=== PATIENT | male | born 1960 | race African-American/Black ===

== ENCOUNTER 2017-10-02 15:18 | Emergency (ER) | payer MEDICAID ==
[~2017-10-02] VITALS: Ht 190.5 cm; Wt 102.0 kg
[~2017-10-02 15:18] MED LIST: AMLO5TAB4 PO; ASPIRIN PO; ATOR10TA PO; CARVEDILOL PO; CLONIDINE PO; HCTZ PO; IBUP-2029 PO; LISI10TA5 PO
[2017-10-02] MEDS ORDERED: KETOROLAC 60MG/2ML VIAL IM ONE (18:45)
[2017-10-02] MEDS ORDERED: TETANUS, DIPHTHERIA, PERTUSSIS VAC/PF 0.5ML (>7YR OLD) IM ONE (18:45)
[2017-10-02 20:15] VITALS: BP 112/74
[2017-10-02 20:27] LABS: BASOPHILS % 1.7 % (0.0-2.0); EOSINOPHILS % 4.3 % (0.0-5.0); HEMATOCRIT. 40.1 % (42.0-52.0); HEMOGLOBIN. 13.2 g/dL (14.0-18.0); LYMPHOCYTES % 39.4 % (20.0-50.0); MEAN CORPUSCULAR HEMOGLOBIN 26.8 pg (28.0-32.0); MEAN CORPUSCULAR VOLUME 81.6 fL (80.0-94.0); MEAN PLATELET VOLUME 7.8 fl (7.4-10.4); NEUTROPHILS % 44.6 % (40.0-76.0); PLATELET 310 x1000/uL (130-400); RED BLOOD CELL COUNT 4.92 mill/uL (4.7-6.1); RED CELL DISTRIBUTION WIDTH 18.1 % (11.6-14.6)
[2017-10-02 20:31] LABS: CHLORIDE 109 mEq/L (98-107)
[2017-10-02 20:40] LABS: CARBON DIOXIDE 28 mEq/L (21-32)
== END 2017-10-02 21:23 | disposition home or self-care (01) ==
LOC: ER 15:40
DX: L03.811 Cellulitis of head [any part, except face] (principal); S00.06XA Insect bite (nonvenomous) of scalp, initial encounter; T63.301A Toxic effect of unspecified spider venom, accidental (unintentional), initial encounter; Y93.9 Activity, unspecified; Y92.9 Unspecified place or not applicable; E78.00 Pure hypercholesterolemia, unspecified; N28.9 Disorder of kidney and ureter, unspecified; I10 Essential (primary) hypertension; F17.200 Nicotine dependence, unspecified, uncomplicated; M10.9 Gout, unspecified; Z23 Encounter for immunization; Z86.73 Personal history of transient ischemic attack (TIA), and cerebral infarction without residual deficits; Z79.82 Long term (current) use of aspirin; Z86.61 Personal history of infections of the central nervous system
CPT/HCPCS: 36415; 80053; 85025; 90471; 90715; 96372; 99284; J1885

== ENCOUNTER 2018-12-27 11:18 | Inpatient (IN) | payer MEDICAID ==
[~2018-12-27] VITALS: Ht 190.5 cm; Wt 97.7 kg
[2018-12-27 13:53] LABS: BASOPHILS % 0.6 % (0.0-2.0); EOSINOPHILS % 1.2 % (0.0-5.0); HEMATOCRIT. 40.9 % (42.0-52.0); HEMOGLOBIN. 13.3 g/dL (14.0-18.0); LYMPHOCYTES % 19.8 % (20.0-50.0); MEAN CORPUSCULAR HEMOGLOBIN 27.1 pg (28.0-32.0); MEAN CORPUSCULAR VOLUME 83.6 fL (80.0-94.0); MEAN PLATELET VOLUME 8.7 fl (7.4-10.4); MONOCYTES % 12.8 % (2.0-8.0); NEUTROPHILS % 65.6 % (40.0-76.0); PLATELET 254 x1000/uL (130-400); RED BLOOD CELL COUNT 4.89 mill/uL (4.7-6.1); RED CELL DISTRIBUTION WIDTH 17.6 % (11.6-14.6)
[2018-12-27 13:56] LABS: CHLORIDE 108 mEq/L (98-107)
[2018-12-27 13:59] LABS: PROTHROMBIN TIME 10.3 sec (9.1-11.1)
[2018-12-27 14:36] LABS: CLARITY URINE CLEAR (CLEAR); COLOR URINE YELLOW (YELLOW); KETONES URINE NEGATIVE (NEGATIVE); LEUKOCYTE ESTERASE URINE NEGATIVE (NEGATIVE); NITRITE URINE NEGATIVE (NEGATIVE); OCCULT BLOOD URINE NEGATIVE (NEGATIVE); PH URINE 5.5 (4.5-8.0); PROTEIN URINE NEGATIVE (NEGATIVE); UROBILINOGEN URINE 0.2 E.U./dL (0.2-1.0)
[2018-12-27] MEDS: AMPICILLIN SOD/SULBACTAM NA 3 G in SODIUM CHLORIDE 0.9% 100 ML IV SCH ×2 (15:43→15:59)
[2018-12-27] MEDS: MORPHINE SULFATE 4 MG/ML CPJ (NOT FOR IM USE) IV PRN (20:50)
[2018-12-27] MEDS: CLONIDINE 0.1MG TABLET PO PRN (20:50)
[2018-12-27 21:30] VITALS: BP 160/83
[2018-12-27 22:30] VITALS: BP 160/83
[2018-12-28] VITALS: BP 157/89
[2018-12-28] MEDS: MORPHINE SULFATE 4 MG/ML CPJ (NOT FOR IM USE) IV PRN (03:45)
[2018-12-28] MEDS: AMPICILLIN SOD/SULBACTAM NA 3 G in SODIUM CHLORIDE 0.9% 100 ML IV SCH (03:59)
[2018-12-28 04:00] VITALS: BP 159/84
[2018-12-28] MEDS ORDERED: DEXTROSE 50% WATER 50ML SYRINGE IV PRN (08:30)
[2018-12-28] MEDS ORDERED: ONDANSETRON HCL 4MG/2ML INJ IV PRN (08:30)
[2018-12-28] MEDS ORDERED: ACETAMINOPHEN 325MG TABLET PO PRN (08:30)
[2018-12-28 08:47] VITALS: BP 183/89
[2018-12-28] MEDS: AMLODIPINE 5MG TABLET PO SCH ×2 (09:44→21:11)
[2018-12-28] MEDS: ENOXAPARIN 40MG/0.4ML SYR SUBCUT SCH (09:45)
[2018-12-28] MEDS: HYDROCODONE/ACETAMINOPHEN 5/325MG TABLET PO PRN ×3 (09:45→21:17)
[2018-12-28 12:00] VITALS: BP 146/90
[2018-12-28] MEDS ORDERED: AMPICILLIN SOD/SULBACTAM NA 3 G in SODIUM CHLORIDE 0.9% 100 ML IV SCH (12:00)
[2018-12-28] MEDS: BLOOD SUGAR DIAGNOSTIC STRIP TEST SCH ×3 (12:10→21:00)
[2018-12-28] MEDS: INSULIN LISPRO 100 UNITS/ML SUBCUT SCH ×3 (12:40→21:00)
[2018-12-28] MEDS: LOSARTAN POTASSIUM 50 MG TABLET PO SCH (14:36)
[2018-12-28] MEDS: CLONIDINE 0.1MG TABLET PO PRN (17:30)
[2018-12-28 18:06] VITALS: BP 161/99
[2018-12-28 18:34] LABS: *AMPHETAMINES SCREEN URINE NEGATIVE (NEGATIVE); *BARBITURATES SCREEN URINE NEGATIVE (NEGATIVE); *BENZODIAZEPINES SCREEN URINE NEGATIVE (NEGATIVE); *COCAINE SCREEN URINE PRESUMTIVE POSITIVE (NEGATIVE); METHADONE URINE SCREEN NEGATIVE (NEGATIVE); OPIATES URINE SCREEN PRESUMTIVE POSITIVE (NEGATIVE); PHENCYCLIDINE URINE SCREEN PRESUMTIVE POSITIVE (NEGATIVE)
[2018-12-28 18:35] LABS: CANNABINOID URINE SCREEN NEGATIVE (NEGATIVE)
[2018-12-28 20:00] VITALS: BP 168/104
[2018-12-29] VITALS (7 sets, daily range): BP systolic 133–175; BP diastolic 62–98
[2018-12-29] MEDS: BLOOD SUGAR DIAGNOSTIC STRIP TEST SCH ×4 (05:07→21:00)
[2018-12-29] MEDS: CLONIDINE 0.1MG TABLET PO PRN (05:20)
[2018-12-29] MEDS: HYDROCODONE/ACETAMINOPHEN 5/325MG TABLET PO PRN ×3 (05:24→21:22)
[2018-12-29] MEDS: INSULIN LISPRO 100 UNITS/ML SUBCUT SCH ×4 (05:24→21:00)
[2018-12-29 07:05] LABS: CHLORIDE 104 mEq/L (98-107)
[2018-12-29 07:20] LABS: HEMATOCRIT. 38.5 % (42.0-52.0); HEMOGLOBIN. 12.4 g/dL (14.0-18.0); MEAN CORPUSCULAR HEMOGLOBIN 26.8 pg (28.0-32.0); MEAN CORPUSCULAR VOLUME 83.5 fL (80.0-94.0); MEAN PLATELET VOLUME 8.7 fl (7.4-10.4); PLATELET 254 x1000/uL (130-400); RED BLOOD CELL COUNT 4.62 mill/uL (4.7-6.1); RED CELL DISTRIBUTION WIDTH 17.1 % (11.6-14.6)
[2018-12-29] MEDS: LOSARTAN POTASSIUM 50 MG TABLET PO SCH (08:54)
[2018-12-29] MEDS: AMLODIPINE 5MG TABLET PO SCH ×2 (08:54→21:16)
[2018-12-29] MEDS: ENOXAPARIN 40MG/0.4ML SYR SUBCUT SCH (08:55)
[2018-12-29 21:19] LABS: PLATELET ESTIMATE NORMAL
[2018-12-30] VITALS: BP 138/72
[2018-12-30 04:00] VITALS: BP 170/86
[2018-12-30] MEDS: BLOOD SUGAR DIAGNOSTIC STRIP TEST SCH ×4 (04:54→20:38)
[2018-12-30] MEDS: CLONIDINE 0.1MG TABLET PO PRN (05:40)
[2018-12-30] MEDS: HYDROCODONE/ACETAMINOPHEN 5/325MG TABLET PO PRN ×3 (05:41→20:15)
[2018-12-30] MEDS: INSULIN LISPRO 100 UNITS/ML SUBCUT SCH ×4 (05:44→21:00)
[2018-12-30 08:00] VITALS: BP 132/69
[2018-12-30 08:02] LABS: HEMATOCRIT. 39.2 % (42.0-52.0); HEMOGLOBIN. 12.6 g/dL (14.0-18.0); MEAN CORPUSCULAR HEMOGLOBIN 26.9 pg (28.0-32.0); MEAN CORPUSCULAR VOLUME 83.5 fL (80.0-94.0); MEAN PLATELET VOLUME 8.6 fl (7.4-10.4); PLATELET 268 x1000/uL (130-400); RED BLOOD CELL COUNT 4.69 mill/uL (4.7-6.1); RED CELL DISTRIBUTION WIDTH 17.3 % (11.6-14.6)
[2018-12-30 08:31] LABS: CHLORIDE 104 mEq/L (98-107)
[2018-12-30] MEDS: LOSARTAN POTASSIUM 50 MG TABLET PO SCH (08:49)
[2018-12-30] MEDS: AMLODIPINE 5MG TABLET PO SCH ×2 (08:49→20:16)
[2018-12-30] MEDS: ENOXAPARIN 40MG/0.4ML SYR SUBCUT SCH (08:49)
[2018-12-30 12:00] VITALS: BP 150/86
[2018-12-30 14:55] LABS: PLATELET ESTIMATE NORMAL
[2018-12-30 16:00] VITALS: BP 155/74
[2018-12-30 20:00] VITALS: BP 160/100
[2018-12-31] VITALS: BP 134/74
[2018-12-31] MEDS: HYDROCODONE/ACETAMINOPHEN 5/325MG TABLET PO PRN ×4 (02:53→18:42)
[2018-12-31 04:00] VITALS: BP 148/79
[2018-12-31] MEDS: BLOOD SUGAR DIAGNOSTIC STRIP TEST SCH ×4 (06:23→20:46)
[2018-12-31] MEDS: INSULIN LISPRO 100 UNITS/ML SUBCUT SCH ×4 (06:34→20:49)
[2018-12-31 08:00] VITALS: BP_SYST 144; BP_SYST 198; BP_DIAS 51; BP_DIAS 75
[2018-12-31] MEDS: AMLODIPINE 5MG TABLET PO SCH ×2 (09:15→20:49)
[2018-12-31] MEDS: LOSARTAN POTASSIUM 50 MG TABLET PO SCH (09:16)
[2018-12-31] MEDS: ENOXAPARIN 40MG/0.4ML SYR SUBCUT SCH (09:17)
[2018-12-31 09:22] VITALS: BP 154/46
[2018-12-31 09:38] LABS: BASOPHILS % 1.1 % (0.0-2.0); EOSINOPHILS % 2.1 % (0.0-5.0); HEMATOCRIT. 40.7 % (42.0-52.0); HEMOGLOBIN. 13.2 g/dL (14.0-18.0); MEAN CORPUSCULAR HEMOGLOBIN 26.9 pg (28.0-32.0); MEAN CORPUSCULAR VOLUME 83.1 fL (80.0-94.0); MEAN PLATELET VOLUME 8.3 fl (7.4-10.4); MONOCYTES % 10.9 % (2.0-8.0); NEUTROPHILS % 61.9 % (40.0-76.0); PLATELET 307 x1000/uL (130-400); RED CELL DISTRIBUTION WIDTH 17.4 % (11.6-14.6)
[2018-12-31 09:51] LABS: CHLORIDE 102 mEq/L (98-107)
[2018-12-31 12:00] VITALS: BP 148/81
[2018-12-31 20:00] VITALS: BP 142/80
[2018-12-31] MEDS: ENOXAPARIN 30MG/0.3ML SYR SUBCUT SCH (20:47)
[2018-12-31] MEDS ORDERED: SORBITOL 70% SOLN 30ML PO SCH (22:45)
[2019-01-01] VITALS: BP 132/75
[2019-01-01 04:00] VITALS: BP 129/80
[2019-01-01] MEDS: HYDROCODONE/ACETAMINOPHEN 5/325MG TABLET PO PRN ×4 (05:19→22:45)
[2019-01-01] MEDS: BLOOD SUGAR DIAGNOSTIC STRIP TEST SCH ×4 (05:56→19:54)
[2019-01-01] MEDS: INSULIN LISPRO 100 UNITS/ML SUBCUT SCH ×4 (05:59→20:33)
[2019-01-01 07:01] LABS: BASOPHILS % 0.7 % (0.0-2.0); EOSINOPHILS % 1.5 % (0.0-5.0); HEMATOCRIT. 37.8 % (42.0-52.0); HEMOGLOBIN. 12.4 g/dL (14.0-18.0); MEAN CORPUSCULAR HEMOGLOBIN 27.1 pg (28.0-32.0); MEAN CORPUSCULAR VOLUME 82.5 fL (80.0-94.0); MEAN PLATELET VOLUME 8.4 fl (7.4-10.4); MONOCYTES % 13.1 % (2.0-8.0); NEUTROPHILS % 67.7 % (40.0-76.0); PLATELET 314 x1000/uL (130-400); RED BLOOD CELL COUNT 4.58 mill/uL (4.7-6.1)
[2019-01-01 07:26] LABS: CHLORIDE 103 mEq/L (98-107)
[2019-01-01 08:00] VITALS: BP 153/92
[2019-01-01] MEDS: AMLODIPINE 5MG TABLET PO SCH ×2 (09:16→21:02)
[2019-01-01] MEDS: LOSARTAN POTASSIUM 50 MG TABLET PO SCH (09:16)
[2019-01-01] MEDS: ENOXAPARIN 30MG/0.3ML SYR SUBCUT SCH ×2 (09:17→21:01)
[2019-01-01 16:00] VITALS: BP 104/74
[2019-01-01 19:59] VITALS: BP 143/84
[2019-01-02] VITALS: BP 145/72
[2019-01-02 04:00] VITALS: BP 145/84
[2019-01-02] MEDS: BLOOD SUGAR DIAGNOSTIC STRIP TEST SCH ×3 (05:27→17:10)
[2019-01-02] MEDS: HYDROCODONE/ACETAMINOPHEN 5/325MG TABLET PO PRN (05:27)
[2019-01-02] MEDS: INSULIN LISPRO 100 UNITS/ML SUBCUT SCH ×3 (06:22→17:40)
[2019-01-02 08:00] VITALS: BP 150/82
[2019-01-02] MEDS: AMLODIPINE 5MG TABLET PO SCH (09:00)
[2019-01-02] MEDS: ENOXAPARIN 30MG/0.3ML SYR SUBCUT SCH (09:07)
[2019-01-02] MEDS: LOSARTAN POTASSIUM 50 MG TABLET PO SCH (09:08)
[2019-01-02 12:00] VITALS: BP 131/79
[2019-01-02] MEDS ORDERED: HYDROCODONE/ACETAMINOPHEN 5/325MG TABLET PO PRN (13:45)
[2019-01-02] MEDS ORDERED: HYDROCODONE/ACETAMINOPHEN 10/325MG TABLET PO PRN (13:45)
[2019-01-02 16:00] VITALS: BP 148/81
[2019-01-02 19:58] VITALS: BP 150/87
== END 2019-01-02 20:30 | DRG 380 ==
LOC: ER 12:28 → 8WST 15:33 → EDBEDREQ 15:35 → ENRESERV 20:19
PROVIDERS: ADMIT Internal Medicine; ATTEND Internal Medicine
DX: E11.621 Type 2 diabetes mellitus with foot ulcer (principal); L97.519 Non-pressure chronic ulcer of other part of right foot with unspecified severity; E87.8 Other disorders of electrolyte and fluid balance, not elsewhere classified; E44.1 Mild protein-calorie malnutrition; B35.3 Tinea pedis; F14.10 Cocaine abuse, uncomplicated; E78.5 Hyperlipidemia, unspecified; F17.200 Nicotine dependence, unspecified, uncomplicated; G83.11 Monoplegia of lower limb affecting right dominant side; I10 Essential (primary) hypertension; E78.00 Pure hypercholesterolemia, unspecified; L60.3 Nail dystrophy; M20.10 Hallux valgus (acquired), unspecified foot; M47.9 Spondylosis, unspecified; M48.00 Spinal stenosis, site unspecified; Z86.73 Personal history of transient ischemic attack (TIA), and cerebral infarction without residual deficits; Z96.659 Presence of unspecified artificial knee joint; M19.90 Unspecified osteoarthritis, unspecified site; Z71.6 Tobacco abuse counseling; Z68.26 Body mass index [BMI] 26.0-26.9, adult
CPT/HCPCS: 36415; 73080; 73110; 73630; 80048; 80305; 82962; 83036; 83605; 85651; 86140; 93005; 93971; 97116; 97162; 97165; 97530; 97535; 99285; G0378; J0295; J1650; J1815; J2270; J7040; J7050

== ENCOUNTER 2019-05-05 08:38 | Inpatient (IN) | payer MEDICAID ==
[~2019-05-05] VITALS: Ht 190.5 cm; Wt 97.5 kg
[2019-05-05] MEDS ORDERED: PIPERACILLIN/TAZ 3.375G PREMIX 50 ML IV ONE (09:30)
[2019-05-05] MEDS ORDERED: VANCOMYCIN 1 G PREMIX 200 ML IV SCH (09:30)
[2019-05-05 11:04] LABS: BASOPHILS % 0.8 % (0.0-2.0); EOSINOPHILS % 2.2 % (0.0-5.0); HEMATOCRIT. 37.9 % (42.0-52.0); HEMOGLOBIN. 12.1 g/dL (14.0-18.0); MEAN CORPUSCULAR HEMOGLOBIN 26.8 pg (28.0-32.0); MEAN CORPUSCULAR VOLUME 84.1 fL (80.0-94.0); MONOCYTES % 9.7 % (2.0-8.0); NEUTROPHILS % 64.3 % (40.0-76.0); PLATELET 272 x1000/uL (130-400); RED BLOOD CELL COUNT 4.51 mill/uL (4.7-6.1); RED CELL DISTRIBUTION WIDTH 17.5 % (11.6-14.6)
[2019-05-05 11:09] LABS: CHLORIDE 113 mEq/L (98-107)
[2019-05-05 13:43] VITALS: BP 151/71
[2019-05-05] MEDS ORDERED: ACETAMINOPHEN 325MG TABLET PO PRN (13:45)
[2019-05-05] MEDS ORDERED: ONDANSETRON HCL 4MG/2ML INJ IV PRN (13:45)
[2019-05-05] MEDS ORDERED: ASPI-1158 PO (13:52)
[2019-05-05] MEDS ORDERED: IBUP-2029 PO (13:52)
[2019-05-05] MEDS ORDERED: CHLO25TA2 PO (13:52)
[2019-05-05] MEDS ORDERED: LISI40TA4 PO (13:52)
[2019-05-05] MEDS ORDERED: SERT25TA74 MT (13:52)
[2019-05-05] MEDS ORDERED: CARV12.545 PO (13:52)
[2019-05-05] MEDS ORDERED: NIFE90TA34 PO (13:52)
[2019-05-05] MEDS: ENOXAPARIN 40MG/0.4ML SYR SUBCUT SCH (15:06)
[2019-05-05 15:47] LABS: CLARITY URINE CLEAR (CLEAR); COLOR URINE YELLOW (YELLOW); KETONES URINE NEGATIVE (NEGATIVE); LEUKOCYTE ESTERASE URINE NEGATIVE (NEGATIVE); NITRITE URINE NEGATIVE (NEGATIVE); OCCULT BLOOD URINE NEGATIVE (NEGATIVE); PH URINE 5.5 (4.5-8.0); PROTEIN URINE NEGATIVE (NEGATIVE); SPECIFIC GRAVITY URINE 1.019 (1.005-1.030); UROBILINOGEN URINE 0.2 E.U./dL (0.2-1.0)
[2019-05-05 16:00] VITALS: BP 163/101
[2019-05-05 16:15] LABS: *AMPHETAMINES SCREEN URINE NEGATIVE (NEGATIVE); *BARBITURATES SCREEN URINE NEGATIVE (NEGATIVE); *BENZODIAZEPINES SCREEN URINE NEGATIVE (NEGATIVE)
[2019-05-05 16:16] LABS: *COCAINE SCREEN URINE PRESUMTIVE POSITIVE (NEGATIVE); CANNABINOID URINE SCREEN NEGATIVE (NEGATIVE); METHADONE URINE SCREEN NEGATIVE (NEGATIVE); OPIATES URINE SCREEN NEGATIVE (NEGATIVE); PHENCYCLIDINE URINE SCREEN PRESUMTIVE POSITIVE (NEGATIVE)
[2019-05-05] MEDS: METFORMIN HCL 500MG TABLET PO SCH (16:55)
[2019-05-05] MEDS: CLONIDINE 0.1MG TABLET PO PRN (16:56)
[2019-05-05] MEDS: LOSARTAN POTASSIUM 50 MG TABLET PO SCH (18:45)
[2019-05-05 20:00] VITALS: BP 165/89
[2019-05-05] MEDS: AMLODIPINE 5MG TABLET PO SCH (20:06)
[2019-05-05] MEDS ORDERED: VANCOMYCIN 1250MG in DEXTROSE 5% WATER 250ML IV SCH (21:00)
[2019-05-05] MEDS: PIPERACILLIN/TAZ 3.375G PREMIX 50 ML IV SCH (21:11)
[2019-05-06] VITALS: BP 139/61
[2019-05-06] MEDS: PIPERACILLIN/TAZ 3.375G PREMIX 50 ML IV SCH ×4 (01:23→20:08)
[2019-05-06 04:00] VITALS: BP 144/71
[2019-05-06 08:00] VITALS: BP 163/92
[2019-05-06] MEDS: ENOXAPARIN 40MG/0.4ML SYR SUBCUT SCH (08:13)
[2019-05-06] MEDS: METFORMIN HCL 500MG TABLET PO SCH ×2 (08:14→16:55)
[2019-05-06] MEDS: AMLODIPINE 5MG TABLET PO SCH ×2 (08:14→20:08)
[2019-05-06] MEDS: LOSARTAN POTASSIUM 50 MG TABLET PO SCH (08:14)
[2019-05-06 08:28] LABS: BASOPHILS % 0.8 % (0.0-2.0); EOSINOPHILS % 3.7 % (0.0-5.0); HEMATOCRIT. 37.5 % (42.0-52.0); HEMOGLOBIN. 12.2 g/dL (14.0-18.0); LYMPHOCYTES % 31.8 % (20.0-50.0); MEAN CORPUSCULAR HEMOGLOBIN 26.8 pg (28.0-32.0); MEAN CORPUSCULAR VOLUME 82.8 fL (80.0-94.0); MEAN PLATELET VOLUME 8.4 fl (7.4-10.4); MONOCYTES % 12.8 % (2.0-8.0); NEUTROPHILS % 50.9 % (40.0-76.0); PLATELET 279 x1000/uL (130-400); RED BLOOD CELL COUNT 4.53 mill/uL (4.7-6.1); RED CELL DISTRIBUTION WIDTH 17.4 % (11.6-14.6)
[2019-05-06 08:50] LABS: CHLORIDE 108 mEq/L (98-107)
[2019-05-06] MEDS: VANCOMYCIN 1 G PREMIX 200 ML IV SCH ×2 (09:01→21:40)
[2019-05-06 12:00] VITALS: BP 147/85
[2019-05-06 16:00] VITALS: BP 174/79
[2019-05-06] MEDS: HYDROCODONE/ACETAMINOPHEN 5/325MG TABLET PO PRN (16:56)
[2019-05-06 20:00] VITALS: BP 160/88
[2019-05-06] MEDS: ENOXAPARIN 30MG/0.3ML SYR SUBCUT SCH (20:08)
[2019-05-07] VITALS: BP 161/90
[2019-05-07] MEDS: PIPERACILLIN/TAZ 3.375G PREMIX 50 ML IV SCH ×4 (01:35→20:14)
[2019-05-07 04:00] VITALS: BP 163/83
[2019-05-07] MEDS: HYDROCODONE/ACETAMINOPHEN 5/325MG TABLET PO PRN ×2 (06:32→13:58)
[2019-05-07 08:00] VITALS: BP 145/82
[2019-05-07] MEDS: LOSARTAN POTASSIUM 50 MG TABLET PO SCH (08:46)
[2019-05-07] MEDS: METFORMIN HCL 500MG TABLET PO SCH ×2 (08:46→17:58)
[2019-05-07] MEDS: ENOXAPARIN 30MG/0.3ML SYR SUBCUT SCH (08:47)
[2019-05-07] MEDS: AMLODIPINE 5MG TABLET PO SCH ×2 (08:47→20:14)
[2019-05-07] MEDS: VANCOMYCIN 1 G PREMIX 200 ML IV SCH ×2 (09:52→21:23)
[2019-05-07 12:00] VITALS: BP 153/87
[2019-05-07 16:00] VITALS: BP 137/74
[2019-05-07 20:00] VITALS: BP 158/85
[2019-05-08] VITALS: BP 157/82
[2019-05-08] MEDS: HYDROCODONE/ACETAMINOPHEN 5/325MG TABLET PO PRN ×3 (00:11→22:49)
[2019-05-08] MEDS: PIPERACILLIN/TAZ 3.375G PREMIX 50 ML IV SCH ×4 (02:20→19:43)
[2019-05-08 04:00] VITALS: BP 154/72
[2019-05-08 08:00] VITALS: BP 162/97
[2019-05-08] MEDS: ENOXAPARIN 40MG/0.4ML SYR SUBCUT SCH (08:27)
[2019-05-08] MEDS: LOSARTAN POTASSIUM 50 MG TABLET PO SCH ×2 (08:28→22:40)
[2019-05-08] MEDS: AMLODIPINE 5MG TABLET PO SCH ×2 (08:28→22:40)
[2019-05-08] MEDS: METFORMIN HCL 500MG TABLET PO SCH ×2 (08:28→17:35)
[2019-05-08] MEDS: VANCOMYCIN 1 G PREMIX 200 ML IV SCH ×2 (09:33→22:39)
[2019-05-08] MEDS: CLONIDINE 0.1MG TABLET PO PRN (10:09)
[2019-05-08] MEDS: HYDRALAZINE HCL 50MG TABLET PO SCH ×2 (11:09→22:39)
[2019-05-08 12:00] VITALS: BP 147/92
[2019-05-08 16:00] VITALS: BP 138/76
[2019-05-08] MEDS: SILVER SULFADIAZINE 1% CREAM 25GM TOP SCH (17:35)
[2019-05-08 20:00] VITALS: BP 156/100
[2019-05-09] VITALS: BP 156/100
[2019-05-09] MEDS: PIPERACILLIN/TAZ 3.375G PREMIX 50 ML IV SCH ×3 (02:19→14:09)
[2019-05-09 04:00] VITALS: BP 127/73
[2019-05-09 08:00] VITALS: BP 150/91
[2019-05-09] MEDS: METFORMIN HCL 500MG TABLET PO SCH (08:22)
[2019-05-09] MEDS: HYDRALAZINE HCL 50MG TABLET PO SCH (08:22)
[2019-05-09] MEDS: AMLODIPINE 5MG TABLET PO SCH (08:22)
[2019-05-09] MEDS: ENOXAPARIN 40MG/0.4ML SYR SUBCUT SCH (08:23)
[2019-05-09] MEDS: LOSARTAN POTASSIUM 50 MG TABLET PO SCH (08:23)
[2019-05-09] MEDS: HYDROCODONE/ACETAMINOPHEN 5/325MG TABLET PO PRN (08:29)
[2019-05-09] MEDS: SILVER SULFADIAZINE 1% CREAM 25GM TOP SCH (08:36)
[2019-05-09] MEDS: VANCOMYCIN 1 G PREMIX 200 ML IV SCH (08:37)
[2019-05-09 12:00] VITALS: BP 127/80
[2019-05-09 13:26] VITALS: BP 127/80
[2019-05-09 16:00] VITALS: BP 163/98
[2019-05-10 04:14] LABS: HIV SCREEN 4G Non Reactive (Non Reactive)
== END 2019-05-09 15:47 | disposition home or self-care (01) | DRG 380 ==
LOC: ER 09:00 → 6EST 11:15 → EDBEDREQ 11:17 → ENRESERV 12:34
PROVIDERS: ADMIT Internal Medicine; ATTEND Internal Medicine
PROC: 0JBQ0ZZ Excision of Right Foot Subcutaneous Tissue and Fascia, Open Approach (ICD-10-PCS; principal; 2019-05-07)
DX: E11.621 Type 2 diabetes mellitus with foot ulcer (principal); L97.529 Non-pressure chronic ulcer of other part of left foot with unspecified severity; L97.519 Non-pressure chronic ulcer of other part of right foot with unspecified severity; E11.40 Type 2 diabetes mellitus with diabetic neuropathy, unspecified; E87.8 Other disorders of electrolyte and fluid balance, not elsewhere classified; E44.1 Mild protein-calorie malnutrition; F14.10 Cocaine abuse, uncomplicated; I10 Essential (primary) hypertension; D64.9 Anemia, unspecified; E78.5 Hyperlipidemia, unspecified; I25.10 Atherosclerotic heart disease of native coronary artery without angina pectoris; Z86.73 Personal history of transient ischemic attack (TIA), and cerebral infarction without residual deficits; F16.10 Hallucinogen abuse, uncomplicated; Z96.659 Presence of unspecified artificial knee joint; F17.210 Nicotine dependence, cigarettes, uncomplicated; L60.3 Nail dystrophy; M20.10 Hallux valgus (acquired), unspecified foot; M20.42 Other hammer toe(s) (acquired), left foot; M20.41 Other hammer toe(s) (acquired), right foot; Z79.82 Long term (current) use of aspirin; I25.2 Old myocardial infarction; Z71.51 Drug abuse counseling and surveillance of drug abuser; Z68.26 Body mass index [BMI] 26.0-26.9, adult
CPT/HCPCS: 36415; 73630; 80048; 80202; 80305; 83036; 83605; 87389; 97116; 97162; 99285; C1893; J1650; J2543; J3370; J7040; J7060

== ENCOUNTER 2020-02-09 02:32 | Inpatient (IN) | payer MEDICAID ==
[~2020-02-09] VITALS: Ht 190.5 cm; Wt 93.0 kg
[~2020-02-09 02:32] MED LIST changes: +ASPI-1158 PO; -ASPIRIN PO; +CARV12.545 PO; -CARVEDILOL PO; +CHLO25TA2 PO; +LISI40TA4 PO; +NIFE90TA60 PO; +SERT25TA74 MT
[2020-02-09] MEDS ORDERED: MORPHINE SULFATE 4 MG/ML CPJ (NOT FOR IM USE) IV ONE (03:00)
[2020-02-09] MEDS ORDERED: CLONIDINE 0.2MG TABLET PO ONE (03:00)
[2020-02-09] MEDS ORDERED: ONDANSETRON HCL 4MG/2ML INJ IV ONE (03:00)
[2020-02-09 04:10] LABS: BASOPHILS % 0.9 % (0.0-2.0); EOSINOPHILS % 1.6 % (0.0-5.0); HEMATOCRIT. 29.9 % (42.0-52.0); HEMOGLOBIN. 9.9 g/dL (14.0-18.0); LYMPHOCYTES % 25.2 % (20.0-50.0); MEAN CORPUSCULAR HEMOGLOBIN 26.1 pg (28.0-32.0); MEAN CORPUSCULAR VOLUME 79.1 fL (80.0-94.0); MEAN PLATELET VOLUME 7.2 fl (7.4-10.4); MONOCYTES % 14.6 % (2.0-8.0); NEUTROPHILS % 57.7 % (40.0-76.0); PLATELET 304 x1000/uL (130-400); RED BLOOD CELL COUNT 3.79 mill/uL (4.7-6.1); RED CELL DISTRIBUTION WIDTH 18.8 % (11.6-14.6)
[2020-02-09 04:13] LABS: CHLORIDE 111 mEq/L (98-107)
[2020-02-09 04:15] LABS: INR 0.9; PARTIAL THROMBOPLASTIN TIME 29.9 sec (23.4-31.0); PROTHROMBIN TIME 10.3 sec (9.6-11.0)
[2020-02-09 04:20] LABS: ETHANOL BLOOD < 10 mg/dL
[2020-02-09 04:22] LABS: LDL CHOLESTEROL 81 mg/dL (5-100)
[2020-02-09 04:23] LABS: CREATINE KINASE 82 IU/L (39-308)
[2020-02-09 04:27] LABS: CREATINE KINASE MB FRACTION < 1.0 ng/mL (0.5-3.6)
[2020-02-09] MEDS ORDERED: IOHEXOL-350 100 ML BOTTLE ONE (05:03)
[2020-02-09 05:20] LABS: CLARITY URINE CLEAR (CLEAR); COLOR URINE YELLOW (YELLOW); KETONES URINE NEGATIVE (NEGATIVE); LEUKOCYTE ESTERASE URINE NEGATIVE (NEGATIVE); NITRITE URINE NEGATIVE (NEGATIVE); OCCULT BLOOD URINE NEGATIVE (NEGATIVE); PROTEIN URINE NEGATIVE (NEGATIVE); SPECIFIC GRAVITY URINE 1.016 (1.005-1.030); UROBILINOGEN URINE 0.2 E.U./dL (0.2-1.0)
[2020-02-09] MEDS ORDERED: ATORVASTATIN CALCIUM 40MG TABLET PO ONE (05:45)
[2020-02-09] MEDS ORDERED: ASPIRIN 81MG TABLET PO ONE (05:45)
[2020-02-09] MEDS ORDERED: CLOPIDOGREL 75MG TABLET PO ONE (05:45)
[2020-02-09 06:08] LABS: *AMPHETAMINES SCREEN URINE NEGATIVE (NEGATIVE); *BARBITURATES SCREEN URINE NEGATIVE (NEGATIVE); *BENZODIAZEPINES SCREEN URINE NEGATIVE (NEGATIVE); *COCAINE SCREEN URINE PRESUMTIVE POSITIVE (NEGATIVE)
[2020-02-09 06:09] LABS: CANNABINOID URINE SCREEN NEGATIVE (NEGATIVE); METHADONE URINE SCREEN NEGATIVE (NEGATIVE); OPIATES URINE SCREEN NEGATIVE (NEGATIVE); PHENCYCLIDINE URINE SCREEN PRESUMTIVE POSITIVE (NEGATIVE)
[2020-02-09] MEDS ORDERED: ONDANSETRON HCL 4MG/2ML INJ IV PRN (09:15)
[2020-02-09 10:00] LABS: TOTAL IRON BINDING CAPACITY 236 ug/dL (250-450)
[2020-02-09] MEDS: ACETAMINOPHEN 325MG TABLET PO PRN ×2 (13:05→22:05)
[2020-02-09] MEDS: CLONIDINE 0.2MG TABLET PO PRN (13:05)
[2020-02-09] MEDS: LOSARTAN POTASSIUM 100 MG TABLET PO SCH (18:30)
[2020-02-09] MEDS ORDERED: ATORVASTATIN CALCIUM 20MG TABLET PO SCH (21:00)
[2020-02-10] MEDS: FERROUS SULFATE 325MG TABLET PO SCH ×3 (09:00→17:46)
[2020-02-10] MEDS: ACETAMINOPHEN 325MG TABLET PO PRN (09:04)
[2020-02-10] MEDS: LOSARTAN POTASSIUM 100 MG TABLET PO SCH (09:05)
[2020-02-10] MEDS: CLOPIDOGREL 75MG TABLET PO SCH (09:05)
[2020-02-10] MEDS: AMLODIPINE 5MG TABLET PO SCH ×2 (09:05→20:23)
[2020-02-10] MEDS: ASPIRIN 81MG TABLET PO SCH (09:05)
[2020-02-10] MEDS: ENOXAPARIN 40MG/0.4ML SYR SUBCUT SCH (09:06)
[2020-02-10] MEDS ORDERED: MORPHINE SULFATE 2 MG/ML CPJ (NOT FOR IM USE) IV PRN (09:45)
[2020-02-10] MEDS ORDERED: KETOROLAC 30MG/ML VIAL IV PRN (10:00)
[2020-02-10] MEDS: HYDROCODONE/ACETAMINOPHEN 5/325MG TABLET PO PRN ×3 (10:13→18:37)
[2020-02-10] MEDS: DOCUSATE SODIUM 250MG CAPSULE PO SCH (10:13)
[2020-02-10 10:18] LABS: BASOPHILS % 1.1 % (0.0-2.0); EOSINOPHILS % 1.4 % (0.0-5.0); HEMATOCRIT. 29.4 % (42.0-52.0); HEMOGLOBIN. 9.6 g/dL (14.0-18.0); LYMPHOCYTES % 21.5 % (20.0-50.0); MEAN CORPUSCULAR VOLUME 79.8 fL (80.0-94.0); MEAN PLATELET VOLUME 7.1 fl (7.4-10.4); MONOCYTES % 12.5 % (2.0-8.0); NEUTROPHILS % 63.5 % (40.0-76.0); PLATELET 283 x1000/uL (130-400); RED BLOOD CELL COUNT 3.69 mill/uL (4.7-6.1); RED CELL DISTRIBUTION WIDTH 18.4 % (11.6-14.6)
[2020-02-10 10:27] LABS: CHLORIDE 106 mEq/L (98-107)
[2020-02-10 11:34] VITALS: BP 149/80
[2020-02-10] MEDS ORDERED: ATOR-2 MT (12:23)
[2020-02-10] MEDS ORDERED: TAMS-11 PO (12:25)
[2020-02-10] MEDS ORDERED: APIX5TAB MT (12:25)
[2020-02-10] MEDS ORDERED: ALLO300T2 MT (12:27)
[2020-02-10] MEDS ORDERED: FAMO20TA8 PO (12:28)
[2020-02-10 12:45] VITALS: BP 130/62
[2020-02-10 16:16] VITALS: BP 153/81
[2020-02-10] MEDS ORDERED: MORPHINE SULFATE 4 MG/ML CPJ (NOT FOR IM USE) IV PRN (19:45)
[2020-02-10 20:00] VITALS: BP 161/98
[2020-02-10] MEDS: MORPHINE SULFATE 2 MG/ML CPJ (NOT FOR IM USE) IV PRN (20:17)
[2020-02-10] MEDS: COLCHICINE 0.6MG TABLET PO SCH (20:23)
[2020-02-10] MEDS ORDERED: ZOLPIDEM TARTRATE 5MG TABLET PO PRN (21:00)
[2020-02-10] MEDS ORDERED: LORAZEPAM 2MG/ML CPJ IV PRN (21:15)
[2020-02-11] VITALS: BP 156/73
[2020-02-11] MEDS: CLONIDINE 0.2MG TABLET PO PRN (05:35)
[2020-02-11] MEDS: MORPHINE SULFATE 2 MG/ML CPJ (NOT FOR IM USE) IV PRN (05:35)
[2020-02-11 08:00] VITALS: BP 136/76
[2020-02-11] MEDS: COLCHICINE 0.6MG TABLET PO SCH (08:32)
[2020-02-11] MEDS: CLOPIDOGREL 75MG TABLET PO SCH (08:32)
[2020-02-11] MEDS: FERROUS SULFATE 325MG TABLET PO SCH (08:32)
[2020-02-11] MEDS: LOSARTAN POTASSIUM 100 MG TABLET PO SCH (08:32)
[2020-02-11] MEDS: AMLODIPINE 5MG TABLET PO SCH (08:32)
[2020-02-11] MEDS: ASPIRIN 81MG TABLET PO SCH (08:32)
[2020-02-11] MEDS: DOCUSATE SODIUM 250MG CAPSULE PO SCH (08:32)
[2020-02-11] MEDS: ENOXAPARIN 40MG/0.4ML SYR SUBCUT SCH (08:33)
[2020-02-11] MEDS ORDERED: DOCU250C14 MT (11:12)
[2020-02-11] MEDS ORDERED: FERR325T6 MT (11:12)
[2020-02-11 11:15] VITALS: BP 136/76
== END 2020-02-11 12:25 | disposition home or self-care (01) | DRG 47 ==
LOC: ER 02:32 → EDBEDREQSVC 05:51 → EDBEDREQTM 05:51 → EDBEDREQ 05:51 → 6WST 02-10 05:33 → ENRESERV 02-10 07:04
PROVIDERS: ADMIT Internal Medicine; ATTEND Internal Medicine
DX: G45.9 Transient cerebral ischemic attack, unspecified (principal); E43 Unspecified severe protein-calorie malnutrition; E87.8 Other disorders of electrolyte and fluid balance, not elsewhere classified; I16.0 Hypertensive urgency; E78.5 Hyperlipidemia, unspecified; E78.00 Pure hypercholesterolemia, unspecified; I10 Essential (primary) hypertension; Z96.659 Presence of unspecified artificial knee joint; D64.9 Anemia, unspecified; F14.10 Cocaine abuse, uncomplicated; M10.9 Gout, unspecified; F17.210 Nicotine dependence, cigarettes, uncomplicated; Z93.3 Colostomy status; Z79.84 Long term (current) use of oral hypoglycemic drugs; Z79.82 Long term (current) use of aspirin; Z79.52 Long term (current) use of systemic steroids; Z79.83 Long term (current) use of bisphosphonates; Z79.1 Long term (current) use of non-steroidal anti-inflammatories (NSAID); Z79.2 Long term (current) use of antibiotics; Z79.01 Long term (current) use of anticoagulants; Z79.02 Long term (current) use of antithrombotics/antiplatelets; Z79.899 Other long term (current) drug therapy; Z86.79 Personal history of other diseases of the circulatory system; Z68.25 Body mass index [BMI] 25.0-25.9, adult; Z71.6 Tobacco abuse counseling; Z71.51 Drug abuse counseling and surveillance of drug abuser
CPT/HCPCS: 36415; 70496; 71045; 80048; 80053; 80305; 80320; 81003; 82550; 82553; 82728; 83540; 83550; 83721; 83880; 84443; 84484; 84560; 85025; 93005; 96374; 97162; 99285; J1650; J1885; J2060; J2270; J2405; Q9967; G0480

== ENCOUNTER 2021-02-21 18:44 | Emergency (ER) | payer MEDICAID, OTHER ==
[~2021-02-21] VITALS: Ht 190.5 cm; Wt 98.0 kg
[~2021-02-21 18:44] MED LIST changes: +ALLO300T2 MT; -AMLO5TAB4 PO; +APIX5TAB MT; -ASPI-1158 PO; +ASPI-1406 PO; +ATOR-2 MT; -ATOR10TA PO; -CLONIDINE PO; +DOCU250C14 MT; +FAMO20TA8 PO; +FERR325T6 MT; -HCTZ PO; -IBUP-2029 PO; -LISI10TA5 PO; +LISI40TA13 PO; -LISI40TA4 PO; +TAMS-11 PO
[2021-02-21] MEDS ORDERED: PIPERACILLIN/TAZ 3.375G PREMIX 50 ML IV ONE (20:45)
[2021-02-21] MEDS ORDERED: VANCOMYCIN 1 G PREMIX 200 ML IV ONE (20:45)
[2021-02-21 21:37] LABS: BASOPHILS % 0.8 % (0.0-2.0); EOSINOPHILS % 2.2 % (0.0-5.0); HEMATOCRIT. 39.3 % (42.0-52.0); HEMOGLOBIN. 12.5 g/dL (14.0-18.0); LYMPHOCYTES % 22.9 % (20.0-50.0); MEAN CORPUSCULAR HEMOGLOBIN 26.2 pg (28.0-32.0); MEAN CORPUSCULAR VOLUME 82.2 fL (80.0-94.0); MEAN PLATELET VOLUME 7.9 fl (7.4-10.4); NEUTROPHILS % 60.1 % (40.0-76.0); PLATELET 351 x1000/uL (130-400); RED BLOOD CELL COUNT 4.78 mill/uL (4.7-6.1); RED CELL DISTRIBUTION WIDTH 16.7 % (11.6-14.6)
[2021-02-21 21:43] LABS: CHLORIDE 112 mEq/L (98-107)
[2021-02-21 21:47] LABS: PROTHROMBIN TIME 10.6 sec (9.6-11.0)
[2021-02-21] MEDS ORDERED: IOHEXOL-300 100 ML BOTTLE ONE (23:36)
[2021-02-22] MEDS ORDERED: SODIUM CHLORIDE 0.9% 1,000 ML IV ONE (01:30)
[2021-02-22] MEDS ORDERED: MORPHINE SULFATE 4 MG/ML CPJ (NOT FOR IM USE) IV ONE (01:30)
[2021-02-22] MEDS ORDERED: PIPERACILLIN/TAZ 3.375G PREMIX 50 ML IV SCH (06:00)
[2021-02-22] MEDS ORDERED: MORPHINE SULFATE 4 MG/ML CPJ (NOT FOR IM USE) IV SCH (07:15)
[2021-02-22 07:17] VITALS: BP 168/78
== END 2021-02-22 07:43 | disposition short-term general hospital (02) ==
LOC: ER 18:44
DX: L03.114 Cellulitis of left upper limb (principal); R00.0 Tachycardia, unspecified; M65.842 Other synovitis and tenosynovitis, left hand; E78.00 Pure hypercholesterolemia, unspecified; I10 Essential (primary) hypertension; Z79.82 Long term (current) use of aspirin; Z79.899 Other long term (current) drug therapy; Z20.822 Contact with and (suspected) exposure to COVID-19
CPT/HCPCS: 36415; 73130; 73201; 80053; 85025; 85610; 85651; 86140; 87040; 87426; 96361; 96365; 96366; 96367; 96375; 99285; J2270; J2543; J3370; J7030; Q9967; Z7610

== ENCOUNTER 2022-06-04 08:14 | Emergency (ER) | payer MEDICAID, OTHER ==
[~2022-06-04] VITALS: Ht 182.9 cm; Wt 100.0 kg
[2022-06-04] MEDS ORDERED: MORPHINE SULFATE 4 MG/ML CPJ (NOT FOR IM USE) IV STA (08:44)
[2022-06-04 09:22] LABS: BASOPHILS % 0.8 % (0.0-2.0); EOSINOPHILS % 2.6 % (0.0-5.0); HEMATOCRIT. 37.8 % (42.0-52.0); HEMOGLOBIN. 12.2 g/dL (14.0-18.0); LYMPHOCYTES % 16.5 % (20.0-50.0); MEAN CORPUSCULAR HEMOGLOBIN 25.1 pg (28.0-32.0); MEAN CORPUSCULAR VOLUME 77.6 fL (80.0-94.0); MEAN PLATELET VOLUME 7.3 fl (7.4-10.4); MONOCYTES % 9.3 % (2.0-8.0); NEUTROPHILS % 70.8 % (40.0-76.0); PLATELET 309 x1000/uL (130-400); RED BLOOD CELL COUNT 4.87 mill/uL (4.7-6.1); RED CELL DISTRIBUTION WIDTH 20.1 % (11.6-14.6)
[2022-06-04 09:25] LABS: CHLORIDE 104 mEq/L (98-107)
[2022-06-04] MEDS ORDERED: TOPUD PO (12:52)
[2022-06-04 13:50] VITALS: BP 142/77
== END 2022-06-04 14:07 | disposition home or self-care (01) ==
LOC: ER 08:31 → CANBEDREQ 18:04
DX: R07.89 Other chest pain (principal); E78.00 Pure hypercholesterolemia, unspecified; I10 Essential (primary) hypertension; Z86.73 Personal history of transient ischemic attack (TIA), and cerebral infarction without residual deficits; F14.10 Cocaine abuse, uncomplicated; Z79.899 Other long term (current) drug therapy
CPT/HCPCS: 36415; 71045; 80053; 83880; 84484; 85025; 93005; 96374; 99285; J2270

== ENCOUNTER 2022-10-20 12:28 | Emergency (ER) | payer MEDICAID, OTHER ==
[~2022-10-20] VITALS: Ht 185.4 cm; Wt 114.0 kg
[~2022-10-20 12:28] MED LIST changes: +TOPUD PO
[2022-10-20 12:30] VITALS: BP 169/117
== END 2022-10-20 13:42 | disposition home or self-care (01) ==
LOC: ER 12:28
DX: R53.1 Weakness (principal); E78.00 Pure hypercholesterolemia, unspecified; I10 Essential (primary) hypertension; Z93.3 Colostomy status; Z86.73 Personal history of transient ischemic attack (TIA), and cerebral infarction without residual deficits; Z79.82 Long term (current) use of aspirin
CPT/HCPCS: 82962; 93005; 99283

== ENCOUNTER 2023-09-09 19:57 | Emergency (ER) | payer MEDICAID ==
[~2023-09-09] VITALS: Ht 190.5 cm; Wt 99.0 kg
[2023-09-09 19:59] VITALS: O2SAT 97
[2023-09-09 20:11] VITALS: BP 157/101
[2023-09-09] MEDS ORDERED: PROCHLORPERAZINE 10MG/2ML VIAL IM ONE (22:45)
[2023-09-09] MEDS ORDERED: ACETAMINOPHEN 325MG TABLET PO ONE (22:45)
[2023-09-10] MEDS ORDERED: TOPUD MT (00:55)
[2023-09-10 06:49] VITALS: PULSE 77; RESP 16; TEMP 98.9
== END 2023-09-10 06:50 | disposition home or self-care (01) ==
LOC: ER 19:57
DX: R51.9 Headache, unspecified (principal); I11.0 Hypertensive heart disease with heart failure; I50.9 Heart failure, unspecified; E78.00 Pure hypercholesterolemia, unspecified; Z86.73 Personal history of transient ischemic attack (TIA), and cerebral infarction without residual deficits; Z79.899 Other long term (current) drug therapy
CPT/HCPCS: 99285; 70450; 96372; J0780

== ENCOUNTER 2024-06-21 12:30 | Inpatient (IN) | payer MEDICAID, OTHER ==
[2024-06-21] VITALS (15 sets, daily range): BP systolic 140–185; BP diastolic 68–101; PULSE 50–94; RESP 15–32; TEMP 97.7; O2SAT 95
[~2024-06-21] VITALS: Ht 177.8 cm; Wt 93.9 kg
[~2024-06-21 12:30] MED LIST changes: +ALBU18HF2 IH; +COLC0.6C3 MT; +FLUT1DIS3 INH; +FURO-152 MT; +TOPUD MT
[2024-06-21] MEDS ORDERED: NITROGLYCERIN 50MG PREMIX 250 ML IV ONE (12:45)
[2024-06-21 12:48] LABS: BASOPHILS % 0.8 % (0.0-2.0); EOSINOPHILS % 1.7 % (0.0-5.0); HEMOGLOBIN. 10.2 g/dL (14.0-18.0); LYMPHOCYTES % 21.8 % (20.0-50.0); MEAN CORPUSCULAR HEMOGLOBIN 24.7 pg (28.0-32.0); MEAN CORPUSCULAR HGB CONC 30.8 g/dL (31.0-37.0); MEAN CORPUSCULAR VOLUME 80.2 fL (80.0-94.0); MEAN PLATELET VOLUME 7.5 fl (7.4-10.4); MONOCYTES % 8.9 % (2.0-8.0); NEUTROPHILS % 66.8 % (40.0-76.0); PLATELET 315 x1000/uL (130-400); RED BLOOD CELL COUNT 4.12 mill/uL (4.7-6.1); RED CELL DISTRIBUTION WIDTH 22.9 % (11.6-14.6); WHITE BLOOD COUNT 5.4 x1000/uL (4.5-11.0)
[2024-06-21 12:52] LABS: DIFFERENTIAL COMMENT 1
[2024-06-21 12:53] LABS: ADD RBC MORPHOLOGY YES
[2024-06-21] MEDS: FUROSEMIDE 40MG/4ML VIAL IV ONE (12:54)
[2024-06-21] MEDS: NITROGLYCERIN 50MG PREMIX 250 ML IV ONE (12:55)
[2024-06-21 12:59] LABS: INR 0.9; PROTHROMBIN TIME 10.6 sec (9.6-11.0)
[2024-06-21 13:06] LABS: CHLORIDE 114 mEq/L (98-107); POTASSIUM 4.2 mEq/L (3.5-5.1); SODIUM 142 mEq/L (136-145)
[2024-06-21 13:07] LABS: CALCIUM 8.8 mg/dL (8.7-10.4); CARBON DIOXIDE 22 mEq/L (21-32)
[2024-06-21 13:12] LABS: CREATININE 1.1 mg/dL (0.6-1.3); GLUCOSE 104 mg/dL (70-105); UREA NITROGEN BLOOD 15 mg/dL (9-23)
[2024-06-21 13:13] LABS: BG BASE EXCESS 0.4 mmol/L (-2.0-2.0); BG CARBOXYHEMOGLOBIN 0.5 % (0.5-1.5); BG DEOXYHEMOGLOBIN 0.3 % (0.0-5.0); BG FRACTION INSPIRED OXYGEN 100; BG HCO3 ACT 26.3 mmol/L (22.0-26.0); BG METHEMOGLOBIN 0.3 % (0.0-1.5); BG OXYGEN SATURATION 99.7 % (92.0-98.5); BG OXYHEMOGLOBIN 98.9 % (94.0-97.0); BG PCO2 47.9 mmHg (35.0-45.0); BG PH 7.357 (7.350-7.450); BG PO2 382.1 mmHg (75.0-100.0); BG SAMPLE SITE LEFT RADIAL; BG TOTAL HEMOGLOBIN 11.3 g/dL (12.0-18.0); BG TOTAL RESPIRATORY RATE 27 b/min; BG VENT MODE MASK - BIPAP
[2024-06-21 13:14] LABS: ETHANOL BLOOD < 10 mg/dL (<10)
[2024-06-21 13:17] LABS: TROPONIN I HIGH SENSITIVITY 71 ng/L (3.0-53)
[2024-06-21] MEDS: LEVOFLOXACIN 750MG PREMIX 150 ML IV ONE (13:45)
[2024-06-21 15:24] LABS: ANISOCYTOSIS 3+; HYPOCHROMASIA 1+; PLATELET ESTIMATE NORMAL
[2024-06-21 15:43] LABS: TROPONIN I HIGH SENSITIVITY 88 ng/L (3.0-53)
[2024-06-21] MEDS ORDERED: DOCUSATE SODIUM 100MG CAPSULE PO PRN (18:00)
[2024-06-21] MEDS ORDERED: CLONIDINE 0.1MG TABLET PO PRN (18:00)
[2024-06-21] MEDS ORDERED: ONDANSETRON HCL 4MG/2ML INJ IV PRN (18:00)
[2024-06-21] MEDS ORDERED: ACETAMINOPHEN 325MG TABLET PO PRN ×2 (18:00)
[2024-06-21] MEDS ORDERED: GUAIFENESIN 200MG/10ML SUGAR FREE UDC PO PRN (18:00)
[2024-06-21] MEDS ORDERED: MAGNESIUM/ALUMINUM HYDROXIDE/SIMETHICONE 30ML UDC PO PRN (18:00)
[2024-06-21 18:50] LABS: IRON 48 ug/dL (65-175)
[2024-06-21 18:53] LABS: PHOSPHORUS 4.2 mg/dL (2.5-4.9); TOTAL IRON BINDING CAPACITY 256 ug/dl (250-425)
[2024-06-21 19:02] LABS: FERRITIN 66 ng/mL (22-322); FOLIC ACID (FOLATE) SERUM > 20.00 ng/mL (>5.38); VITAMIN B12 SERUM 195 pg/mL (211-911)
[2024-06-21] MEDS: IPRATROPIUM/ALBUTEROL 0.5-3(2.5)MG/3ML NEB HHN SCH (20:50)
[2024-06-21] MEDS ORDERED: NITROGLYCERIN 50MG PREMIX 250 ML IV PRN ×2 (22:00→22:30)
[2024-06-21] MEDS: METHYLPREDNISOLONE SOD SUCC 125MG/2ML (ACT-O-VIAL) IV NR (22:14)
[2024-06-21] MEDS: ATORVASTATIN CALCIUM 40MG TABLET PO SCH (22:15)
[2024-06-21] MEDS: FUROSEMIDE 20MG TABLET PO SCH (22:15)
[2024-06-21] MEDS: GABAPENTIN 300MG CAPSULE PO SCH (22:15)
[2024-06-21 23:50] LABS: CREATINE KINASE MB FRACTION 1.6 ng/mL (0.5-3.6)
[2024-06-22] VITALS (103 sets, daily range): BP systolic 101–166; BP diastolic 49–146; PULSE 64–115; RESP 12–39; TEMP 97.8–98.5; O2SAT 92–98
[2024-06-22 00:56] LABS: CLARITY URINE CLEAR (CLEAR); COLOR URINE YELLOW (YELLOW); GLUCOSE URINE NEGATIVE (NEGATIVE); KETONES URINE NEGATIVE (NEGATIVE); LEUKOCYTE ESTERASE URINE NEGATIVE (NEGATIVE); NITRITE URINE NEGATIVE (NEGATIVE); OCCULT BLOOD URINE NEGATIVE (NEGATIVE); PH URINE 5.5 (4.5-8.0); PROTEIN URINE NEGATIVE (NEGATIVE); UROBILINOGEN URINE 0.2 E.U./dL (0.2-1.0)
[2024-06-22 01:06] LABS: *AMPHETAMINES SCREEN URINE NEGATIVE (NEGATIVE)
[2024-06-22 01:07] LABS: *BARBITURATES SCREEN URINE NEGATIVE (NEGATIVE); *BENZODIAZEPINES SCREEN URINE NEGATIVE (NEGATIVE); *COCAINE SCREEN URINE PRESUMPTIVE POSITIVE (NEGATIVE); CANNABINOID URINE SCREEN NEGATIVE (NEGATIVE); ECSTASY MDMA SCREEN URINE NEGATIVE (NEGATIVE); METHADONE URINE SCREEN NEGATIVE (NEGATIVE); OPIATES URINE SCREEN NEGATIVE (NEGATIVE); PHENCYCLIDINE URINE SCREEN PRESUMTIVE POSITIVE (NEGATIVE)
[2024-06-22] MEDS: METHYLPREDNISOLONE SOD SUCC 40MG/ML (ACT-O-VIAL) IV SCH (05:25)
[2024-06-22 05:45] LABS: BASOPHILS % 0.5 % (0.0-2.0); DIFFERENTIAL COMMENT 1; EOSINOPHILS % 0.1 % (0.0-5.0); HEMATOCRIT. 33.6 % (42.0-52.0); HEMOGLOBIN. 10.4 g/dL (14.0-18.0); LYMPHOCYTES % 8.8 % (20.0-50.0); MEAN CORPUSCULAR HEMOGLOBIN 24.3 pg (28.0-32.0); MEAN CORPUSCULAR VOLUME 78.4 fL (80.0-94.0); MONOCYTES % 1.9 % (2.0-8.0); NEUTROPHILS % 88.7 % (40.0-76.0); PLATELET 332 x1000/uL (130-400); RED BLOOD CELL COUNT 4.29 mill/uL (4.7-6.1); RED CELL DISTRIBUTION WIDTH 22.3 % (11.6-14.6); WHITE BLOOD COUNT 5.2 x1000/uL (4.5-11.0)
[2024-06-22 05:47] LABS: CHLORIDE 107 mEq/L (98-107); POTASSIUM 4.3 mEq/L (3.5-5.1); SODIUM 141 mEq/L (136-145)
[2024-06-22 05:48] LABS: CALCIUM 9.3 mg/dL (8.7-10.4); CARBON DIOXIDE 28 mEq/L (21-32)
[2024-06-22 05:52] LABS: CREATINE KINASE MB FRACTION 1.6 ng/mL (0.5-3.6)
[2024-06-22 05:53] LABS: CREATININE 1.2 mg/dL (0.6-1.3); GLUCOSE 135 mg/dL (70-105); TRIGLYCERIDE 67 mg/dL (0-150); UREA NITROGEN BLOOD 17 mg/dL (9-23)
[2024-06-22 05:54] LABS: LDL CHOLESTEROL 90 mg/dL (5-100)
[2024-06-22 05:55] LABS: CHOLESTEROL 160 mg/dL (<200); HDL CHOLESTEROL 56 mg/dL (>55)
[2024-06-22] MEDS: PANTOPRAZOLE SODIUM 40 MG/VIAL IV SCH (08:44)
[2024-06-22] MEDS: SPIRONOLACTONE 25MG TABLET PO SCH (08:45)
[2024-06-22] MEDS: ASPIRIN 81MG EC TABLET PO SCH (08:45)
[2024-06-22] MEDS: NIFEDIPINE XL 90MG TAB PO SCH (08:46)
[2024-06-22] MEDS: TAMSULOSIN HCL 0.4MG SR CAPSULE PO SCH (08:46)
[2024-06-22] MEDS: LISINOPRIL 40MG TABLET PO SCH (09:00)
[2024-06-22] MEDS ORDERED: LIDOCAINE HCL 1% 10 MG/ML 10ML VIAL ONE (09:25)
[2024-06-22] MEDS: LISINOPRIL 20MG TABLET PO SCH (09:58)
[2024-06-22] MEDS ORDERED: CARV12.545 PO (11:20)
[2024-06-22] MEDS: CARVEDILOL 12.5MG TABLET PO SCH (11:30)
[2024-06-22] MEDS: AMLODIPINE 10MG TABLET PO SCH (11:30)
[2024-06-22] MEDS: ENOXAPARIN 40MG/0.4ML SYR SUBCUT SCH (12:37)
[2024-06-22 15:16] LABS: TROPONIN I HIGH SENSITIVITY 32 ng/L (3.0-53)
[2024-06-22 22:06] LABS: CREATINE KINASE MB FRACTION 0.8 ng/mL (0.5-3.6)
[2024-06-23 00:10] VITALS: BP 143/76; PULSE 78; RESP 14; TEMP 98.2
[2024-06-23 04:00] VITALS: BP 109/61; PULSE 81; RESP 16; TEMP 98.4
[2024-06-23 04:30] VITALS: PULSE 85; RESP 18; O2SAT 95
[2024-06-23 06:54] LABS: CHLORIDE 107 mEq/L (98-107); POTASSIUM 4.1 mEq/L (3.5-5.1); SODIUM 141 mEq/L (136-145)
[2024-06-23 06:55] LABS: CALCIUM 9.1 mg/dL (8.7-10.4); CARBON DIOXIDE 29 mEq/L (21-32)
[2024-06-23 07:00] LABS: CREATININE 1.2 mg/dL (0.6-1.3); GLUCOSE 170 mg/dL (70-105); UREA NITROGEN BLOOD 20 mg/dL (9-23)
[2024-06-23 08:00] VITALS: BP 148/99; PULSE 83; RESP 17; TEMP 98
[2024-06-23 08:05] VITALS: PULSE 99; RESP 16; O2SAT 99
[2024-06-23 12:12] VITALS: BP 148/99; PULSE 107; TEMP 98; O2SAT 99
[2024-06-23] MEDS ORDERED: EMPA10TA MT (12:15)
== END 2024-06-23 16:10 | disposition home or self-care (01) | DRG 140 ==
LOC: ER 12:30 → EDBEDREQSVC 17:00 → EDBEDREQTM 17:00 → EDBEDREQ 17:00 → MICUSO 20:18 → 3WST 06-23 00:10
PROVIDERS: ADMIT Hospitalist; ATTEND Hospitalist
PROC: 5A09357 Assistance with Respiratory Ventilation, Less than 24 Consecutive Hours, Continuous Positive Airway Pressure (ICD-10-PCS; 2024-06-21)
PROC: 02HV33Z Insertion of Infusion Device into Superior Vena Cava, Percutaneous Approach (ICD-10-PCS; principal; 2024-06-22)
PROC: B548ZZA Ultrasonography of Superior Vena Cava, Guidance (ICD-10-PCS; 2024-06-22)
PROC: 5A09357 Assistance with Respiratory Ventilation, Less than 24 Consecutive Hours, Continuous Positive Airway Pressure (ICD-10-PCS; 2024-06-22)
DX: J44.1 Chronic obstructive pulmonary disease with (acute) exacerbation (principal); J96.01 Acute respiratory failure with hypoxia; I21.A1 Myocardial infarction type 2; I50.23 Acute on chronic systolic (congestive) heart failure; N17.9 Acute kidney failure, unspecified; I42.9 Cardiomyopathy, unspecified; I11.0 Hypertensive heart disease with heart failure; D64.9 Anemia, unspecified; Z20.822 Contact with and (suspected) exposure to COVID-19; E78.00 Pure hypercholesterolemia, unspecified; M10.9 Gout, unspecified; I16.1 Hypertensive emergency; F14.10 Cocaine abuse, uncomplicated; F17.210 Nicotine dependence, cigarettes, uncomplicated; Z79.51 Long term (current) use of inhaled steroids; Z79.84 Long term (current) use of oral hypoglycemic drugs; Z79.899 Other long term (current) drug therapy; Z86.73 Personal history of transient ischemic attack (TIA), and cerebral infarction without residual deficits; Z86.79 Personal history of other diseases of the circulatory system; Z93.3 Colostomy status
CPT/HCPCS: 36415; 36573; 36600; 71045; 80048; 80061; 80305; 80320; 81003; 82040; 82375; 82550; 82553; 82607; 82728; 82746; 82805; 83540; 83550; 83735; 83880; 84100; 84443; 84484; 85025; 87070; 87426; 93005; 93306; 94640; 94660; 99291; C1725; J1650; J1940; J2470; J2919; J2920; J3490; G0480

== ENCOUNTER 2024-11-28 17:42 | Inpatient (IN) | payer MEDICAID, OTHER ==
[~2024-11-28] VITALS: Ht 185.4 cm; Wt 98.0 kg
[~2024-11-28 17:42] MED LIST changes: -ALLO300T2 MT; -APIX5TAB MT; -CARV12.545 PO; +CARV6.2548 MT; -CHLO25TA2 PO; -DOCU250C14 MT; -FAMO20TA8 PO; +INDO-14 MT; -LISI40TA13 PO; +LOSA50TA41 PO; -NIFE90TA60 PO; -TOPUD MT; -TOPUD PO
[2024-11-28 18:58] LABS: BASOPHILS % 0.7 % (0.0-2.0); CHLORIDE 108 mEq/L (98-107); EOSINOPHILS % 1.6 % (0.0-5.0); HEMATOCRIT. 31.6 % (42.0-52.0); HEMOGLOBIN. 9.8 g/dL (14.0-18.0); LYMPHOCYTES % 22.8 % (20.0-50.0); MEAN CORPUSCULAR HEMOGLOBIN 25.9 pg (28.0-32.0); MEAN CORPUSCULAR VOLUME 83.6 fL (80.0-94.0); MEAN PLATELET VOLUME 7.4 fl (7.4-10.4); MONOCYTES % 11.4 % (2.0-8.0); NEUTROPHILS % 63.5 % (40.0-76.0); PLATELET 316 x1000/uL (130-400); RED BLOOD CELL COUNT 3.78 mill/uL (4.7-6.1); RED CELL DISTRIBUTION WIDTH 21.6 % (11.6-14.6); SODIUM 143 mEq/L (136-145); WHITE BLOOD COUNT 5.2 x1000/uL (4.5-11.0)
[2024-11-28 18:59] LABS: CARBON DIOXIDE 31 mEq/L (21-32)
[2024-11-28 19:04] LABS: CREATININE 1.2 mg/dL (0.6-1.3); GLUCOSE 90 mg/dL (70-105); UREA NITROGEN BLOOD 21 mg/dL (9-23)
[2024-11-28 19:15] LABS: ETHANOL BLOOD < 10 mg/dL (<10); TROPONIN I HIGH SENSITIVITY 73 ng/L (3.0-53)
[2024-11-28] MEDS ORDERED: NITROGLYCERIN 0.4MG TABLET SL SL PRN (21:30)
[2024-11-28] MEDS: ASPIRIN 81MG TABLET PO ONE (21:30)
[2024-11-28] MEDS ORDERED: NITROGLYCERIN SPRAY/4.9GM CAN TL ONE (21:30)
[2024-11-28] MEDS: FUROSEMIDE 40MG/4ML VIAL IVP ONE (21:53)
[2024-11-29] MEDS ORDERED: ONDANSETRON HCL 4MG/2ML INJ IV PRN (03:00)
[2024-11-29] MEDS ORDERED: ACETAMINOPHEN 325MG TABLET PO PRN (03:00)
[2024-11-29] MEDS ORDERED: ZOLPIDEM TARTRATE 5MG TABLET PO PRN (03:00)
[2024-11-29] MEDS ORDERED: IPRATROPIUM/ALBUTEROL 0.5-3(2.5)MG/3ML NEB NEB PRN (03:00)
[2024-11-29] MEDS ORDERED: CLONIDINE 0.1MG TABLET PO PRN (03:00)
[2024-11-29] MEDS ORDERED: LORAZEPAM 2MG/ML INJ IV PRN (03:00)
[2024-11-29 03:14] VITALS: BP 139/76; PULSE 83; RESP 18; TEMP 36.418
[2024-11-29] MEDS: ENOXAPARIN 40MG/0.4ML SYR SUBCUT SCH (09:00)
[2024-11-29] MEDS: PANTOPRAZOLE SODIUM 40 MG/VIAL IV SCH (11:08)
[2024-11-29 11:35] LABS: CREATINE KINASE MB FRACTION 1.2 ng/mL (0.5-3.6)
[2024-11-29 11:52] VITALS: BP 149/92; PULSE 80; RESP 20; TEMP 36.28068; O2SAT 93
[2024-11-29 16:00] VITALS: BP 123/84; PULSE 92; RESP 18; TEMP 36.9474; O2SAT 95
[2024-11-29] MEDS: AMLODIPINE 2.5MG TABLET PO SCH (16:56)
[2024-11-29 20:00] VITALS: BP 126/85; PULSE 98; RESP 16; TEMP 36.9474; O2SAT 98
[2024-11-30] VITALS: BP 137/79; PULSE 95; RESP 20; TEMP 37.00296; O2SAT 97
[2024-11-30] MEDS ORDERED: FUROSEMIDE 40MG/4ML VIAL IVP NR (00:15)
[2024-11-30] MEDS: FUROSEMIDE 40MG TABLET PO NR (02:31)
[2024-11-30 04:00] VITALS: BP 142/73; PULSE 86; RESP 20; TEMP 36.3918; O2SAT 8
[2024-11-30 08:00] VITALS: BP 167/103; PULSE 90; RESP 18; TEMP 36.78072; O2SAT 100
[2024-11-30 08:30] LABS: BASOPHILS % 0.4 % (0.0-2.0); HEMATOCRIT. 33.2 % (42.0-52.0); HEMOGLOBIN. 10.4 g/dL (14.0-18.0); LYMPHOCYTES % 17.9 % (20.0-50.0); MEAN CORPUSCULAR HEMOGLOBIN 25.6 pg (28.0-32.0); MEAN CORPUSCULAR HGB CONC 31.2 g/dL (31.0-37.0); MEAN PLATELET VOLUME 7.6 fl (7.4-10.4); MONOCYTES % 14.9 % (2.0-8.0); NEUTROPHILS % 64.8 % (40.0-76.0); PLATELET 299 x1000/uL (130-400); RED BLOOD CELL COUNT 4.05 mill/uL (4.7-6.1); RED CELL DISTRIBUTION WIDTH 21.7 % (11.6-14.6); WHITE BLOOD COUNT 5.5 x1000/uL (4.5-11.0)
[2024-11-30 08:32] LABS: CHLORIDE 106 mEq/L (98-107); POTASSIUM 4.3 mEq/L (3.5-5.1); SODIUM 140 mEq/L (136-145)
[2024-11-30 08:33] LABS: CALCIUM 9.3 mg/dL (8.7-10.4); CARBON DIOXIDE 28 mEq/L (21-32)
[2024-11-30 08:38] LABS: CREATININE 1.2 mg/dL (0.6-1.3); GLUCOSE 91 mg/dL (70-105); UREA NITROGEN BLOOD 17 mg/dL (9-23)
[2024-11-30] MEDS: FUROSEMIDE 40MG/4ML VIAL IVP SCH (09:00)
[2024-11-30] MEDS: HYDROCODONE/ACETAMINOPHEN 5/325MG TABLET PO PRN (09:30)
[2024-11-30 11:02] LABS: BG BASE EXCESS 1.1 mmol/L (-2.0-3.0); BG CARBOXYHEMOGLOBIN 1.4 % (0.5-1.5); BG DEOXYHEMOGLOBIN 16.3 % (0.0-5.0); BG METHEMOGLOBIN 0.3 % (0.5-1.5); BG OXYGEN SATURATION 83.4 % (94.0-98.0); BG PCO2 37.1 mmHg (35.0-48.0); BG PH 7.446 (7.350-7.450); BG PO2 48.1 mmHg (83.0-108.0); BG SAMPLE SITE RIGHT RADIAL; BG TOTAL HEMOGLOBIN 11.2 g/dL (13.5-17.5); BG VENT MODE ROOM AIR
[2024-11-30 11:56] LABS: CLARITY URINE CLEAR (CLEAR); COLOR URINE YELLOW (YELLOW); GLUCOSE URINE NEGATIVE (NEGATIVE); KETONES URINE NEGATIVE (NEGATIVE); LEUKOCYTE ESTERASE URINE NEGATIVE (NEGATIVE); NITRITE URINE NEGATIVE (NEGATIVE); OCCULT BLOOD URINE NEGATIVE (NEGATIVE); PH URINE 8.5 (4.5-8.0); PROTEIN URINE TRACE (NEGATIVE); SPECIFIC GRAVITY URINE 1.018 (1.005-1.030)
[2024-11-30 12:00] VITALS: BP 128/77; PULSE 86; RESP 18; TEMP 36.89184; O2SAT 94
[2024-11-30 12:12] LABS: BACTERIA URINE FEW; RBC URINE 0-2 /hpf (0-2); SQUAMOUS EPITHELIAL CELL URINE NONE SEEN /lpf (RARE/1+); WBC URINE 0-2 /hpf (0-2); YEAST URINE NONE SEEN
[2024-11-30 12:13] LABS: *AMPHETAMINES SCREEN URINE NEGATIVE (NEGATIVE); *BARBITURATES SCREEN URINE NEGATIVE (NEGATIVE); *BENZODIAZEPINES SCREEN URINE NEGATIVE (NEGATIVE); *COCAINE SCREEN URINE PRESUMPTIVE POSITIVE (NEGATIVE); CANNABINOID URINE SCREEN NEGATIVE (NEGATIVE); ECSTASY MDMA SCREEN URINE NEGATIVE (NEGATIVE); METHADONE URINE SCREEN NEGATIVE (NEGATIVE); OPIATES URINE SCREEN NEGATIVE (NEGATIVE); PHENCYCLIDINE URINE SCREEN PRESUMTIVE POSITIVE (NEGATIVE)
[2024-11-30 18:18] VITALS: BP 130/80; PULSE 82; RESP 17; TEMP 36.05844; O2SAT 98
[2024-11-30 20:00] VITALS: BP 154/72; PULSE 89; RESP 20; TEMP 36.9474; O2SAT 97
[2024-11-30] MEDS: GUAIFENESIN-DM 200MG-20MG/10ML UDC PO PRN (23:48)
[2024-12-01] VITALS: BP 155/102; PULSE 102; RESP 23; TEMP 36.50292; O2SAT 96
[2024-12-01 04:00] VITALS: BP 154/97; PULSE 88; RESP 18; TEMP 36.89184; O2SAT 99
[2024-12-01 07:44] LABS: CARBON DIOXIDE 29 mEq/L (21-32); CHLORIDE 102 mEq/L (98-107); SODIUM 137 mEq/L (136-145)
[2024-12-01 07:45] LABS: CALCIUM 9.3 mg/dL (8.7-10.4)
[2024-12-01 07:50] LABS: CREATININE 1.4 mg/dL (0.6-1.3); GLUCOSE 87 mg/dL (70-105); UREA NITROGEN BLOOD 24 mg/dL (9-23)
[2024-12-01 07:57] LABS: HEMATOCRIT. 34.5 % (42.0-52.0); HEMOGLOBIN. 10.8 g/dL (14.0-18.0); MEAN CORPUSCULAR HEMOGLOBIN 25.6 pg (28.0-32.0); MEAN CORPUSCULAR HGB CONC 31.3 g/dL (31.0-37.0); MEAN CORPUSCULAR VOLUME 81.8 fL (80.0-94.0); PLATELET 269 x1000/uL (130-400); RED BLOOD CELL COUNT 4.22 mill/uL (4.7-6.1); RED CELL DISTRIBUTION WIDTH 21.4 % (11.6-14.6); WHITE BLOOD COUNT 5.1 x1000/uL (4.5-11.0)
[2024-12-01 08:00] VITALS: BP 171/106; PULSE 89; RESP 22; TEMP 36.28068; O2SAT 93
[2024-12-01 08:28] LABS: DIFFERENTIAL COMMENT 1
[2024-12-01 12:00] VITALS: BP 143/77; PULSE 91; RESP 18; TEMP 36.83628; O2SAT 95
[2024-12-01 16:00] VITALS: BP 146/75; PULSE 95; RESP 20; TEMP 36.3918; TEMP 36.39180; O2SAT 95
[2024-12-01 17:00] LABS: ANISOCYTOSIS 2+; GIANT PLATELETS 1+; PLATELET ESTIMATE NORMAL
[2024-12-01 17:52] VITALS: BP 146/75; PULSE 95; TEMP 97.5; O2SAT 95
[2024-12-01] MEDS ORDERED: AMLODIPINE 2.5MG TABLET PO SCH (21:00)
== END 2024-12-01 19:00 | disposition home or self-care (01) | DRG 194 ==
LOC: ER 17:42 → 5WST 21:27 → EDBEDREQ 21:38 → EDBEDREQTM 21:38
PROVIDERS: ADMIT Internal Medicine; ATTEND Internal Medicine
DX: I11.0 Hypertensive heart disease with heart failure (principal); J96.00 Acute respiratory failure, unspecified whether with hypoxia or hypercapnia; I42.9 Cardiomyopathy, unspecified; I50.23 Acute on chronic systolic (congestive) heart failure; J44.9 Chronic obstructive pulmonary disease, unspecified; F14.10 Cocaine abuse, uncomplicated; M10.9 Gout, unspecified; E78.00 Pure hypercholesterolemia, unspecified; N40.0 Benign prostatic hyperplasia without lower urinary tract symptoms; Z91.148 Patient's other noncompliance with medication regimen for other reason
CPT/HCPCS: 36415; 36600; 71045; 80048; 80305; 80320; 81003; 82375; 82550; 82553; 82805; 83880; 84145; 84484; 85025; 93005; 93970; 99291; A4606; A4663; J1650; J1940; J2470; G0480

== ENCOUNTER 2025-01-16 02:44 | Inpatient (IN) | payer MEDICAID, OTHER ==
[~2025-01-16] VITALS: Ht 190.5 cm; Wt 100.1 kg
[2025-01-16 04:45] LABS: BASOPHILS % 0.6 % (0.0-2.0); EOSINOPHILS % 0.7 % (0.0-5.0); HEMATOCRIT. 31.1 % (42.0-52.0); HEMOGLOBIN. 9.6 g/dL (14.0-18.0); LYMPHOCYTES % 15.2 % (20.0-50.0); MEAN CORPUSCULAR HEMOGLOBIN 25.1 pg (28.0-32.0); MEAN CORPUSCULAR VOLUME 81.1 fL (80.0-94.0); MEAN PLATELET VOLUME 7.3 fl (7.4-10.4); MONOCYTES % 9.4 % (2.0-8.0); NEUTROPHILS % 74.1 % (40.0-76.0); PLATELET 374 x1000/uL (130-400); RED BLOOD CELL COUNT 3.84 mill/uL (4.7-6.1); RED CELL DISTRIBUTION WIDTH 19.6 % (11.6-14.6); WHITE BLOOD COUNT 8.8 x1000/uL (4.5-11.0)
[2025-01-16 04:56] LABS: CHLORIDE 111 mEq/L (98-107); POTASSIUM 3.8 mEq/L (3.5-5.1); SODIUM 145 mEq/L (136-145)
[2025-01-16 04:57] LABS: CARBON DIOXIDE 26 mEq/L (21-32)
[2025-01-16 04:58] LABS: CALCIUM 8.9 mg/dL (8.7-10.4)
[2025-01-16] MEDS ORDERED: ONDANSETRON HCL 4MG/2ML INJ IV PRN (05:00)
[2025-01-16] MEDS ORDERED: DEXTROSE 50% WATER 50ML SYRINGE IV PRN ×2 (05:00→21:45)
[2025-01-16 05:02] LABS: CREATININE 1.3 mg/dL (0.6-1.3); GLUCOSE 124 mg/dL (70-105)
[2025-01-16 05:03] LABS: UREA NITROGEN BLOOD 18 mg/dL (9-23)
[2025-01-16 05:11] LABS: ETHANOL BLOOD < 10 mg/dL (<10)
[2025-01-16 05:12] LABS: TROPONIN I HIGH SENSITIVITY 63 ng/L (3.0-53)
[2025-01-16 05:29] LABS: CLARITY URINE CLEAR (CLEAR); COLOR URINE YELLOW (YELLOW); GLUCOSE URINE NEGATIVE (NEGATIVE); KETONES URINE NEGATIVE (NEGATIVE); LEUKOCYTE ESTERASE URINE NEGATIVE (NEGATIVE); NITRITE URINE NEGATIVE (NEGATIVE); OCCULT BLOOD URINE NEGATIVE (NEGATIVE); PH URINE 5.5 (4.5-8.0); PROTEIN URINE TRACE (NEGATIVE); SPECIFIC GRAVITY URINE 1.016 (1.005-1.030); UROBILINOGEN URINE 0.2 E.U./dL (0.2-1.0)
[2025-01-16] MEDS: HYDROCODONE/ACETAMINOPHEN 5/325MG TABLET PO NR (05:32)
[2025-01-16 05:43] LABS: *AMPHETAMINES SCREEN URINE NEGATIVE (NEGATIVE); *BARBITURATES SCREEN URINE NEGATIVE (NEGATIVE); *BENZODIAZEPINES SCREEN URINE NEGATIVE (NEGATIVE); *COCAINE SCREEN URINE PRESUMPTIVE POSITIVE (NEGATIVE); METHADONE URINE SCREEN NEGATIVE (NEGATIVE); OPIATES URINE SCREEN NEGATIVE (NEGATIVE); PHENCYCLIDINE URINE SCREEN PRESUMTIVE POSITIVE (NEGATIVE)
[2025-01-16 05:44] LABS: CANNABINOID URINE SCREEN NEGATIVE (NEGATIVE); ECSTASY MDMA SCREEN URINE NEGATIVE (NEGATIVE)
[2025-01-16] MEDS ORDERED: IPRATROPIUM BROMIDE (0.02%) 0.5MG/2.5ML NEB ONE (05:44)
[2025-01-16] MEDS: ALBUTEROL (0.083%) 2.5MG/3ML NEB ONE (05:44)
[2025-01-16] MEDS: IPRATROPIUM BROMIDE (0.02%) 0.5MG/2.5ML NEB HHN STA (05:48)
[2025-01-16] MEDS: ALBUTEROL (0.083%) 2.5MG/3ML NEB HHN STA (05:48)
[2025-01-16 05:57] LABS: PARTIAL THROMBOPLASTIN TIME 30.6 sec (23.4-31.0); PROTHROMBIN TIME 11.2 sec (9.6-11.0)
[2025-01-16] MEDS ORDERED: IPRATROPIUM BROMIDE (0.02%) 0.5MG/2.5ML NEB HHN PRN (06:00)
[2025-01-16 06:17] LABS: BACTERIA URINE NONE SEEN; RBC URINE NONE SEEN /hpf (0-2); SQUAMOUS EPITHELIAL CELL URINE FEW /lpf (RARE/1+); WBC URINE NONE SEEN /hpf (0-2)
[2025-01-16 06:31] LABS: CALCIUM 8.9 mg/dL (8.7-10.4); CARBON DIOXIDE 26 mEq/L (21-32); CHLORIDE 110 mEq/L (98-107); POTASSIUM 3.9 mEq/L (3.5-5.1); SODIUM 146 mEq/L (136-145)
[2025-01-16 06:35] LABS: CREATINE KINASE MB FRACTION 1.1 ng/mL (0.5-3.6)
[2025-01-16 06:36] LABS: CREATININE 1.4 mg/dL (0.6-1.3); GLUCOSE 118 mg/dL (70-105)
[2025-01-16 06:37] LABS: LDL CHOLESTEROL 70 mg/dL (5-100); TRIGLYCERIDE 86 mg/dL (0-150); UREA NITROGEN BLOOD 18 mg/dL (9-23)
[2025-01-16 06:38] LABS: ALANINE AMINOTRANSFERASE < 7 IU/L (10-49); ALBUMIN 3.7 g/dL (3.2-4.8); ASPARTATE AMINOTRANSFERASE 15 IU/L (<34); CHOLESTEROL 138 mg/dL (<200); CREATINE KINASE 43 IU/L (46-171)
[2025-01-16 06:39] LABS: BILIRUBIN TOTAL 0.2 mg/dL (0.1-1.0); HDL CHOLESTEROL 46 mg/dL (>55); PHOSPHORUS 3.6 mg/dL (2.5-4.9); PROTEIN TOTAL 7.1 g/dL (6.0-8.3)
[2025-01-16 06:40] LABS: T4 FREE 0.98 ng/dL (0.89-1.76); THYROID STIMULATING HORMONE 0.44 uIU/mL (0.55-4.78)
[2025-01-16] MEDS: ASPIRIN 325MG EC TABLET PO NR (06:43)
[2025-01-16] MEDS: ENOXAPARIN 100MG/ML SYR SUBCUT NR (06:44)
[2025-01-16] MEDS: LOSARTAN 50 MG TABLET PO SCH (06:44)
[2025-01-16] MEDS: PREDNISONE 20MG TABLET PO SCH (06:44)
[2025-01-16 08:02] VITALS: PULSE 93; RESP 16; O2SAT 98
[2025-01-16] MEDS: IPRATROPIUM BROMIDE (0.02%) 0.5MG/2.5ML NEB HHN SCH (08:02)
[2025-01-16] MEDS: FUROSEMIDE 40MG/4ML VIAL IVP NR (08:04)
[2025-01-16] MEDS: NITROGLYCERIN OINT 1GM/INCH UDPKT TD NR (08:04)
[2025-01-16] MEDS: CEFTRIAXONE 1GM/50ML 50 ML IV SCH (08:04)
[2025-01-16] MEDS: FUROSEMIDE 40MG/4ML VIAL IV SCH (09:49)
[2025-01-16] MEDS: ASPIRIN 81MG EC TABLET PO SCH (09:49)
[2025-01-16] MEDS: EMPAGLIFLOZIN 10MG TABLET PO SCH (09:50)
[2025-01-16] MEDS: FERROUS SULFATE 325MG TABLET PO SCH (09:50)
[2025-01-16] MEDS: INDOMETHACIN 25MG CAPSULE PO SCH (09:51)
[2025-01-16] MEDS: TAMSULOSIN HCL 0.4MG SR CAPSULE PO SCH (09:51)
[2025-01-16] MEDS: COLCHICINE 0.6MG TABLET PO SCH (09:51)
[2025-01-16] MEDS: BLOOD SUGAR DIAGNOSTIC STRIP TEST SCH (10:31)
[2025-01-16 12:37] VITALS: PULSE 79; RESP 25; O2SAT 99
[2025-01-16] MEDS ORDERED: IPRATROPIUM/ALBUTEROL 0.5-3(2.5)MG/3ML NEB HHN PRN (12:45)
[2025-01-16 18:00] VITALS: BP 165/85; PULSE 79; RESP 22; TEMP 36.7; O2SAT 99
[2025-01-16] MEDS: MONTELUKAST SODIUM 10MG TABLET PO SCH (18:44)
[2025-01-16 19:45] VITALS: BP 162/79; PULSE 94; RESP 15; TEMP 36.6
[2025-01-16 20:00] VITALS: BP 154/102; PULSE 101; RESP 29; TEMP 36.7; O2SAT 97
[2025-01-16] MEDS: FAMOTIDINE 20MG TABLET PO SCH (20:35)
[2025-01-16] MEDS: ACETAMINOPHEN 325MG TABLET PO PRN (20:35)
[2025-01-16] MEDS: ATORVASTATIN CALCIUM 40MG TABLET PO SCH (20:35)
[2025-01-16] MEDS ORDERED: ENOXAPARIN 100MG/ML SYR SUBCUT SCH (21:00)
[2025-01-16] MEDS ORDERED: CLONIDINE 0.1MG TABLET PO PRN (21:45)
[2025-01-16] MEDS: INSULIN LISPRO 100 UNITS/ML SUBCUT SCH (21:58)
[2025-01-16 23:41] LABS: INFLUENZA TYPE A Presumptive Negative (Pres. Neg.); INFLUENZA TYPE B Presumptive Negative (Pres. Neg.)
[2025-01-17] VITALS (13 sets, daily range): BP systolic 128–182; BP diastolic 73–101; PULSE 73–107; RESP 15–28; TEMP 36.3–36.7; O2SAT 90–97
[2025-01-17] MEDS: CEFTRIAXONE 1GM/50ML 50 ML IV SCH (06:24)
[2025-01-17 06:47] LABS: HEMATOCRIT. 29.6 % (42.0-52.0); HEMOGLOBIN. 9.6 g/dL (14.0-18.0); MEAN CORPUSCULAR HEMOGLOBIN 25.2 pg (28.0-32.0); MEAN CORPUSCULAR HGB CONC 32.4 g/dL (31.0-37.0); MEAN CORPUSCULAR VOLUME 77.9 fL (80.0-94.0); RED CELL DISTRIBUTION WIDTH 19.7 % (11.6-14.6)
[2025-01-17 06:54] LABS: DIFFERENTIAL COMMENT 1
[2025-01-17 07:05] LABS: CHLORIDE 109 mEq/L (98-107); POTASSIUM 4.8 mEq/L (3.5-5.1); SODIUM 144 mEq/L (136-145)
[2025-01-17 07:06] LABS: CALCIUM 8.7 mg/dL (8.7-10.4); CARBON DIOXIDE 25 mEq/L (21-32)
[2025-01-17 07:10] LABS: IRON 29 ug/dL (65-175)
[2025-01-17 07:11] LABS: CREATININE 1.4 mg/dL (0.6-1.3); GLUCOSE 100 mg/dL (70-105); UREA NITROGEN BLOOD 27 mg/dL (9-23)
[2025-01-17 07:13] LABS: ALANINE AMINOTRANSFERASE 8 IU/L (10-49); ALBUMIN 3.3 g/dL (3.2-4.8); ASPARTATE AMINOTRANSFERASE 12 IU/L (<34); BILIRUBIN TOTAL 0.2 mg/dL (0.1-1.0); TOTAL IRON BINDING CAPACITY 273 ug/dl (250-425)
[2025-01-17 07:14] LABS: PROTEIN TOTAL 6.4 g/dL (6.0-8.3)
[2025-01-17 07:24] LABS: VITAMIN B12 SERUM 260 pg/mL (211-911)
[2025-01-17] MEDS: BLOOD SUGAR DIAGNOSTIC STRIP TEST SCH (07:30)
[2025-01-17 07:40] LABS: FOLIC ACID (FOLATE) SERUM 12.39 ng/mL (>5.38)
[2025-01-17 10:14] LABS: ANISOCYTOSIS 1+; HYPOCHROMASIA 1+; MICROCYTOSIS 1+; PLATELET ESTIMATE NORMAL
[2025-01-17 10:36] LABS: MEAN PLATELET VOLUME 8.2 fl (7.4-10.4)
[2025-01-17 10:37] LABS: PLATELET 370 x1000/uL (130-400)
[2025-01-17] MEDS: ENOXAPARIN 40MG/0.4ML SYR SUBCUT SCH (10:44)
[2025-01-17] MEDS: AZITHROMYCIN 500 MG TABLET PO SCH (13:26)
[2025-01-17] MEDS: AMLODIPINE 10MG TABLET PO SCH (13:27)
[2025-01-17] MEDS: FAMOTIDINE 20MG TABLET PO SCH (13:43)
[2025-01-17] MEDS: IPRATROPIUM/ALBUTEROL 0.5-3(2.5)MG/3ML NEB HHN SCH (16:19)
[2025-01-17] MEDS: HYDRALAZINE 20MG/ML VIAL IV PRN (16:32)
[2025-01-17] MEDS: GUAIFENESIN-DM 200MG-20MG/10ML UDC PO PRN (18:33)
[2025-01-17] MEDS: FUROSEMIDE 40MG TABLET PO SCH (20:40)
[2025-01-18] VITALS (9 sets, daily range): BP systolic 119–176; BP diastolic 61–96; PULSE 70–99; RESP 14–24; TEMP 36.3–37.2; O2SAT 96–100
[2025-01-18 07:29] LABS: HEMOGLOBIN 9.2 g/dL (14.0-18.0); MEAN CORPUSCULAR HEMOGLOBIN 25.1 pg (28.0-32.0); MEAN CORPUSCULAR HGB CONC 31.7 g/dL (31.0-37.0); MEAN CORPUSCULAR VOLUME 79.3 fL (80.0-94.0); PLATELET 358 x1000/uL (130-400); RED BLOOD CELL COUNT 3.66 mill/uL (4.7-6.1); RED CELL DISTRIBUTION WIDTH 19.4 % (11.6-14.6); WHITE BLOOD COUNT 5.8 x1000/uL (4.5-11.0)
[2025-01-18 07:52] LABS: CHLORIDE 108 mEq/L (98-107); POTASSIUM 4.5 mEq/L (3.5-5.1); SODIUM 145 mEq/L (136-145)
[2025-01-18 07:53] LABS: CARBON DIOXIDE 30 mEq/L (21-32)
[2025-01-18 07:54] LABS: CALCIUM 8.8 mg/dL (8.7-10.4)
[2025-01-18 07:58] LABS: CREATININE 1.4 mg/dL (0.6-1.3); GLUCOSE 111 mg/dL (70-105)
[2025-01-18 07:59] LABS: UREA NITROGEN BLOOD 26 mg/dL (9-23)
[2025-01-18 08:01] LABS: PHOSPHORUS 3.4 mg/dL (2.5-4.9)
[2025-01-18] MEDS: PREDNISONE 10MG TABLET PO SCH (09:33)
[2025-01-19 02:55] VITALS: PULSE 82; RESP 14; O2SAT 98
[2025-01-19 06:50] LABS: CARBON DIOXIDE 29 mEq/L (21-32); CHLORIDE 102 mEq/L (98-107); POTASSIUM 4.1 mEq/L (3.5-5.1); SODIUM 142 mEq/L (136-145)
[2025-01-19 06:55] LABS: CREATININE 1.3 mg/dL (0.6-1.3)
[2025-01-19 06:56] LABS: GLUCOSE 102 mg/dL (70-105); UREA NITROGEN BLOOD 26 mg/dL (9-23)
[2025-01-19 06:58] LABS: PHOSPHORUS 4.2 mg/dL (2.5-4.9)
[2025-01-19 08:00] VITALS: BP 125/72; PULSE 98; RESP 18; TEMP 35.9; O2SAT 98
[2025-01-19 08:34] VITALS: PULSE 76; RESP 16; O2SAT 97
[2025-01-19 08:35] LABS: HEMATOCRIT 29.5 % (42.0-52.0); HEMOGLOBIN 9.3 g/dL (14.0-18.0); MEAN CORPUSCULAR HEMOGLOBIN 24.8 pg (28.0-32.0); MEAN CORPUSCULAR HGB CONC 31.6 g/dL (31.0-37.0); MEAN CORPUSCULAR VOLUME 78.4 fL (80.0-94.0); PLATELET 372 x1000/uL (130-400); RED BLOOD CELL COUNT 3.77 mill/uL (4.7-6.1); RED CELL DISTRIBUTION WIDTH 19.3 % (11.6-14.6); WHITE BLOOD COUNT 4.5 x1000/uL (4.5-11.0)
[2025-01-19 11:44] VITALS: BP 138/63; PULSE 77; RESP 20; TEMP 36.4; O2SAT 100
[2025-01-19 14:06] VITALS: PULSE 75; RESP 16; O2SAT 97
[2025-01-19 14:10] VITALS: BP 138/63; PULSE 77; TEMP 97.4; O2SAT 100
== END 2025-01-19 15:00 | disposition home or self-care (01) | DRG 140 ==
LOC: ER 02:44 → 5EST 04:44 → EDBEDREQ 05:52 → EDBEDREQTM 05:52 → EDBEDREQSVC 13:05 → 7WST 01-18 12:33
PROVIDERS: ADMIT Hospitalist; ATTEND Hospitalist
DX: J44.1 Chronic obstructive pulmonary disease with (acute) exacerbation (principal); J96.21 Acute and chronic respiratory failure with hypoxia; I21.4 Non-ST elevation (NSTEMI) myocardial infarction; I50.23 Acute on chronic systolic (congestive) heart failure; I42.9 Cardiomyopathy, unspecified; M84.444A Pathological fracture, right finger(s), initial encounter for fracture; F14.10 Cocaine abuse, uncomplicated; D50.9 Iron deficiency anemia, unspecified; I13.0 Hypertensive heart and chronic kidney disease with heart failure and stage 1 through stage 4 chronic kidney disease, or unspecified chronic kidney disease; Z20.822 Contact with and (suspected) exposure to COVID-19; F16.10 Hallucinogen abuse, uncomplicated; F17.210 Nicotine dependence, cigarettes, uncomplicated; I16.0 Hypertensive urgency; M10.9 Gout, unspecified; N40.0 Benign prostatic hyperplasia without lower urinary tract symptoms; E78.5 Hyperlipidemia, unspecified; L03.113 Cellulitis of right upper limb; N18.9 Chronic kidney disease, unspecified; Z79.01 Long term (current) use of anticoagulants; Z79.51 Long term (current) use of inhaled steroids; Z79.84 Long term (current) use of oral hypoglycemic drugs; Z79.899 Other long term (current) drug therapy; Z86.718 Personal history of other venous thrombosis and embolism
CPT/HCPCS: 36415; 71045; 73130; 80048; 80053; 80061; 80305; 80320; 81003; 82550; 82553; 82607; 82746; 82962; 83036; 83540; 83550; 83605; 83735; 83880; 84100; 84145; 84439; 84443; 84484; 85025; 85027; 87426; 87804; 93005; 93970; 93971; 94070; 94640; 94664; 98960; 99285; J0360; J0696; J1650; J1815; J1940; J7512; G0480